=== PATIENT | female | born 1940 | race Caucasian/White ===

== ENCOUNTER 2022-01-06 16:27 | Emergency (ER) | payer OTHER ==
[~2022-01-06] VITALS: Ht 152.4 cm; Wt 58.5 kg
[~2022-01-06 16:27] MED LIST: ACID CONTROL20 MG; AVAPRO150 MG; CITRATE OF MAG300 M1; DIPHENHIST; DONEPEZIL HCL5 MG; LANSOPRAZOLE30 MG; LYRICA100 MG; LYRICA300 MG; MILLIPRED5 MG; MIRTAZAPINE30 MG; MONTELUKAST SOD10 MG; NAPROXEN500 MG; SERTRALINE HCL100 MG; ULTRAM50 MG; [UNRECOGNIZED DRUG - CODE]
[2022-01-06] MEDS ORDERED: PREDNISONE5 M1 (16:55)
[2022-01-06] MEDS ORDERED: HYDROCHLOROTH12.5 MG (16:56)
[2022-01-06] MEDS ORDERED: GLUMETZA500 MG (17:00)
== END 2022-01-06 19:59 | disposition home or self-care (01) ==
LOC: ER 16:27
DX: S01.511A Laceration without foreign body of lip, initial encounter (principal); S01.21XA Laceration without foreign body of nose, initial encounter; S89.90XA Unspecified injury of unspecified lower leg, initial encounter; S69.91XA Unspecified injury of right wrist, hand and finger(s), initial encounter; W19.XXXA Unspecified fall, initial encounter; Y93.9 Activity, unspecified; Y92.019 Unspecified place in single-family (private) house as the place of occurrence of the external cause; I10 Essential (primary) hypertension; Z88.2 Allergy status to sulfonamides

== ENCOUNTER 2022-01-13 12:09 | Emergency (ER) | payer OTHER ==
[~2022-01-13] VITALS: Ht 149.9 cm; Wt 58.5 kg
[~2022-01-13 12:09] MED LIST changes: +GLUMETZA500 MG; +HYDROCHLOROTH12.5 MG; +PREDNISONE5 M1
== END 2022-01-13 13:08 | disposition home or self-care (01) ==
LOC: ER 12:09
DX: Z48.02 Encounter for removal of sutures (principal); Z88.2 Allergy status to sulfonamides; Z88.6 Allergy status to analgesic agent; Z91.040 Latex allergy status; Z79.84 Long term (current) use of oral hypoglycemic drugs; E11.9 Type 2 diabetes mellitus without complications

== ENCOUNTER 2022-12-06 09:54 | Outpatient (CLI) | payer OTHER | END 2022-12-06 10:06 | disposition home or self-care (01) | LOC: TOM 09:54 | PROVIDERS: ATTEND Internal Medicine Gastroenterology | DX: K63.5 Polyp of colon (principal); K56.609 Unspecified intestinal obstruction, unspecified as to partial versus complete obstruction; K43.9 Ventral hernia without obstruction or gangrene ==